=== PATIENT | female | born 1980 | race Caucasian/White ===

== ENCOUNTER 2017-02-18 23:17 | Inpatient (IN) | payer OTHER, SELFPAY ==
[~2017-02-18] VITALS: Ht 152.4 cm; Wt 64.0 kg
[2017-02-19] MEDS ORDERED: SODIUM CHLORIDE FLUSH 10ML SYR IVF ONE
[2017-02-19] MEDS ORDERED: SODIUM CHLORIDE 0.9% 1,000ML IVBOLUS ONE
[2017-02-19 00:16] LABS: HEMATOCRIT 46.3 % (34.6-47.8); HEMOGLOBIN 15.8 g/dL (11.7-16.4); WHITE BLOOD COUNT 7.6 x10^3/uL (3.4-10)
[2017-02-19 00:26] LABS: ASPARTATE AMINO TRANSFERASE 24 U/L (15-37); BLOOD UREA NITROGEN 16 mg/dL (7-18)
[2017-02-19 00:32] LABS: IS PT STATUS REG ER OR PRE ER? YES
[2017-02-19] MEDS ORDERED: OXYcodone/APAP 5/325MG TABLET ONE (02:23)
[2017-02-19] MEDS ORDERED: KETOROLAC 30 MG/1 ML ONE (02:23)
[2017-02-19] MEDS ORDERED: KETOROLAC 30 MG/1 ML IVPush ONE (02:30)
[2017-02-19] MEDS ORDERED: OXYcodone/APAP 5/325MG TABLET PO ONE (02:30)
[2017-02-19 03:28] VITALS: BP 118/80
[2017-02-19] MEDS ORDERED: ONDANSETRON 2MG/ML, 2ML IVPush PRN (03:30)
[2017-02-19] MEDS ORDERED: morphine SULFATE 10 MG/ML, 1ML IVPush PRN (03:30)
[2017-02-19] MEDS ORDERED: KETOROLAC 30 MG/1 ML IVPush PRN (03:30)
[2017-02-19] MEDS ORDERED: GUAIFENESIN/DM 200-20MG, 10ML UDC PO PRN ×2 (03:30)
[2017-02-19 03:49] VITALS: BP 118/80
[2017-02-19] MEDS: SODIUM CHLORIDE 0.9% 1,000 ML IV SCH ×2 (04:19→13:35)
[2017-02-19] MEDS: PANTOPROZOLE 40MG TABLET PO SCH (07:52)
[2017-02-19 07:59] VITALS: BP 124/86
[2017-02-19 08:31] LABS: DAU SCREEN DISCLAIMER
[2017-02-19 12:35] VITALS: BP 118/85
[2017-02-19 20:30] VITALS: BP 114/65
[2017-02-20] MEDS: SODIUM CHLORIDE 0.9% 1,000 ML IV SCH ×2 (00:34→09:18)
[2017-02-20 02:58] VITALS: BP 108/76
[2017-02-20 07:36] VITALS: BP 110/75
[2017-02-20] MEDS: PANTOPROZOLE 40MG TABLET PO SCH (07:53)
[2017-02-20] MEDS ORDERED: ASPI-496 PO (12:44)
[2017-02-20] MEDS ORDERED: METO25TA35 PO (12:44)
[2017-02-20] MEDS ORDERED: ATOR10TA PO (12:44)
[2017-02-20] MEDS ORDERED: FURO-93 PO (12:45)
== END 2017-02-20 14:48 | disposition home or self-care (01) | DRG 293 ==
LOC: ED 02-19 02:29 → EDIP 02-19 02:30 → 4WST 02-19 03:34 → DCLOUNGE 02-20 14:28
PROVIDERS: ADMIT Hospitalist; ATTEND Family Medicine
DX: I50.41 Acute combined systolic (congestive) and diastolic (congestive) heart failure (principal); I07.1 Rheumatic tricuspid insufficiency; F15.10 Other stimulant abuse, uncomplicated; F17.210 Nicotine dependence, cigarettes, uncomplicated; I37.1 Nonrheumatic pulmonary valve insufficiency
CPT/HCPCS: 36415; 71010; 71275; 80053; 80307; 83880; 84443; 84484; 85025; 85379; 85610; 85730; 86677; 93005; 93306; 96361; 96374; J1885; G0479; J7030

== ENCOUNTER 2017-10-27 16:45 | Outpatient (CLI) | payer MEDICAID ==
[~2017-10-27] VITALS: Ht 165.1 cm; Wt 61.5 kg
[~2017-10-27 16:45] MED LIST: ASPI-496 PO; ATOR10TA PO; FURO-93 PO; METO25TA35 PO
[2017-10-27 17:20] VITALS: BP 121/79
[2017-10-27 17:33] LABS: MICROSCOPIC INDICATED
[2017-10-27 17:41] LABS: AMPHETAMINE SCREEN, URINE Positive (Negative); BARBITURATE SCREEN, URINE Negative (Negative); BENZODIAZEPINE SCREEN, URINE Negative (Negative); CANNABINOID SCREEN, URINE Negative (Negative); COCAINE SCREEN, URINE Negative (Negative); METHADONE SCREEN, URINE Negative (Negative); OPIATE SCREEN, URINE Positive (Negative)
[2017-10-27 18:19] LABS: MEAN CORPUSCULAR HEMOGLOBIN 33.5 pg (27.0-34.8); MEAN CORPUSCULAR HGB CONC 34.7 g/dL (32.4-35.8); MEAN CORPUSCULAR VOLUME 96.6 fL (80-100); MEAN PLATELET VOLUME 8.1 fL (7.4-10.4); PLATELET COUNT 292 x10^3/uL (130-400); RED BLOOD COUNT 3.68 x10^6/uL (3.82-5.3); RED CELL DISTRIBUTION WIDTH 13.2 % (9.6-15.2)
== END 2017-10-27 20:40 | disposition home or self-care (01) ==
LOC: LDOP 16:45
PROVIDERS: ATTEND Obstetrics & Gynecology
DX: O26.893 Other specified pregnancy related conditions, third trimester (principal); R10.9 Unspecified abdominal pain; Z3A.32 32 weeks gestation of pregnancy
CPT/HCPCS: 36415; 76805; 80307; 81001; 85027; 86592; 86762; 86850; 86900; 87086; 87340; 87491; 87591; 87806; G0475

== ENCOUNTER 2017-11-12 09:17 | Observation (INO) | payer MEDICAID ==
[~2017-11-12] VITALS: Ht 165.1 cm; Wt 61.4 kg
[2017-11-12 09:42] VITALS: BP 125/77
[2017-11-12 10:22] LABS: MICROSCOPIC INDICATED
[2017-11-12] MEDS ORDERED: LACTATED RINGERS 1,000 ML IVBOLUS ONE (10:30)
[2017-11-12] MEDS ORDERED: LACTATED RINGERS 1,000 ML IV SCH (10:30)
[2017-11-12 10:56] LABS: BASOPHILS # (AUTO) 0.05 x10^3/uL (0-0.1); BASOPHILS % (AUTO) 0 % (0-1); EOSINOPHILS # (AUTO) 0.24 x10^3/uL (0-0.4); EOSINOPHILS % (AUTO) 2 % (1-7); LYMPHOCYTES # (AUTO) 2.08 x10^3/uL (1-3.4); LYMPHOCYTES % (AUTO) 17 % (22-44); MD NO; MEAN CORPUSCULAR HEMOGLOBIN 33.5 pg (27.0-34.8); MEAN CORPUSCULAR HGB CONC 34.9 g/dL (32.4-35.8); MEAN CORPUSCULAR VOLUME 95.8 fL (80-100); MEAN PLATELET VOLUME 8.3 fL (7.4-10.4); MONOCYTES # (AUTO) 0.69 x10^3/uL (0.2-0.8); MONOCYTES % (AUTO) 6 % (2-9); NEUTROPHILS # (AUTO) 9.05 x10^3/uL (1.8-6.8); NEUTROPHILS % (AUTO) 75 % (42-75); PLATELET COUNT 252 x10^3/uL (130-400); RED BLOOD COUNT 3.49 x10^6/uL (3.82-5.3); RED CELL DISTRIBUTION WIDTH 12.7 % (9.6-15.2)
[2017-11-12 11:31] LABS: ALBUMIN 2.1 g/dL (3.4-5.0); ANION GAP 7 mmol/L (5-15); CALCIUM 8.3 mg/dL (8.5-10.1); CHLORIDE 108 mmol/L (98-107)
[2017-11-12 11:35] LABS: ALANINE AMINOTRANSFERASE 21 U/L (12-78); ALKALINE PHOSPHATASE 152 U/L (45-117); BILIRUBIN, DIRECT < 0.1 mg/dL (0.1-0.2); BILIRUBIN,TOTAL 0.5 mg/dL (0.2-1.0); CREATININE 0.75 mg/dL (0.55-1.02); TOTAL PROTEIN 5.4 g/dL (6.4-8.2)
[2017-11-12 11:40] LABS: AMPHETAMINE SCREEN, URINE Positive (Negative); BARBITURATE SCREEN, URINE Negative (Negative); BENZODIAZEPINE SCREEN, URINE Negative (Negative); CANNABINOID SCREEN, URINE Negative (Negative); COCAINE SCREEN, URINE Negative (Negative); METHADONE SCREEN, URINE Negative (Negative); OPIATE SCREEN, URINE Positive (Negative)
[2017-11-12] MEDS ORDERED: PREN1TAB69 PO (12:02)
[2017-11-12] MEDS: CEPHALEXIN 500 MG CAPSULE PO SCH ×2 (12:52→20:11)
[2017-11-12 12:58] LABS: INTERNATIONAL NORMALIZED RATIO 0.93 (0.93-1.1); PROTHROMBIN TIME 9.6 Seconds (9.6-11.5)
== END 2017-11-12 21:35 | disposition home or self-care (01) ==
LOC: LDOP 09:17 → LDIP 11:00
PROVIDERS: ADMIT Obstetrics & Gynecology; ATTEND Obstetrics & Gynecology
DX: O62.9 Abnormality of forces of labor, unspecified (principal); O23.43 Unspecified infection of urinary tract in pregnancy, third trimester; O09.523 Supervision of elderly multigravida, third trimester; O60.03 Preterm labor without delivery, third trimester; O99.323 Drug use complicating pregnancy, third trimester; O99.333 Smoking (tobacco) complicating pregnancy, third trimester; Z3A.34 34 weeks gestation of pregnancy
CPT/HCPCS: 36415; 59025; 76819; 80053; 80307; 81001; 82248; 82570; 82731; 84156; 84550; 85025; 85610; 85730; 86803; 87081; 87086; 87808; 93005; G0378; J7120; 96360; 96361